=== PATIENT | male | born 1995 | race Caucasian/White ===

== ENCOUNTER 2018-10-23 22:26 | Emergency (ER) | payer SELFPAY ==
[~2018-10-23] VITALS: Ht 180.3 cm; Wt 80.7 kg
[2018-10-23] MEDS ORDERED: BACI30OI7 PO (22:37)
[2018-10-23] MEDS ORDERED: AMPH20TA2 PO (22:37)
[2018-10-23 23:09] VITALS: BP 113/68
[2018-10-23 23:12] LABS: BASOPHILS % (AUTO) 0 % (0-10); EOSINOPHILS # (AUTO) 0.1 10^3/uL (0.0-0.3); EOSINOPHILS % (AUTO) 1 % (0-10); HEMATOCRIT 40 % (40-54); HEMOGLOBIN 14.1 G/DL (13.3-17.7); LYMPHOCYTES # (AUTO) 2.1 X 10^3 (1.0-4.0); LYMPHOCYTES % (AUTO) 17 % (12-44); MEAN CORPUSCULAR HGB CONC 35 G/DL (32-36); MEAN CORPUSCULAR VOLUME 92 FL (80-99); MEAN PLATELET VOLUME 9.9 FL (7.4-10.4); MONOCYTES # (AUTO) 1.6 X 10^3 (0.0-1.0); MONOCYTES % (AUTO) 12 % (0-12); NEUTROPHILS # (AUTO) 9.1 X 10^3 (1.8-7.8); NEUTROPHILS % (AUTO) 70 % (42-75); PLATELET COUNT 350 10^3/uL (130-400); RED CELL DISTRIBUTION WIDTH 12.1 % (10.0-14.5); WHITE BLOOD COUNT 12.9 10^3/uL (4.3-11.0)
[2018-10-23 23:13] LABS: MEAN CORPUSCULAR HEMOGLOBIN 32 PG (25-34)
[2018-10-23] MEDS ORDERED: cefTRIAXone FOR IV USE 1,000 MG in WATER (STERILE) FOR INJECTION 10 ML IV ONE (23:15)
[2018-10-23] MEDS ORDERED: fentaNYL INJECTION 100 MCG/2 ML AMP IVP ONE (23:15)
[2018-10-23] MEDS ORDERED: NS 100 ML (IVPB) BAG IV ONE (23:15)
[2018-10-23] MEDS ORDERED: CLINDAMYCIN 900 MG/50 ML IVPB 50 ML IV ONE (23:15)
[2018-10-23] MEDS ORDERED: IOHEXOL 350 MG/ML 100 ML (OMNIPAQUE 350) VIAL IV ONE (23:15)
[2018-10-23 23:16] LABS: BILIRUBIN,URINE NEGATIVE (NEGATIVE); CLARITY,URINE CLEAR; COLOR,URINE YELLOW; GLUCOSE, URINE (UA) NEGATIVE (NEGATIVE); KETONES,URINE NEGATIVE (NEGATIVE); LEUKOCYTE ESTERASE ,URINE NEGATIVE (NEGATIVE); NITRITE,URINE NEGATIVE (NEGATIVE); PH,URINE 7 (5-9); PROTEIN,URINE NEGATIVE (NEGATIVE); UROBILINOGEN,URINE NORMAL (NORMAL)
--- NOTE | 2018-10-23 23:20 | ED EENT ---
History of Present Illness General Chief Complaint: Dental Problems/Pain Stated Complaint: TOOTH INFECTION;FACIAL SWELLING Nursing Triage Note: right facial swelling, dental extraction 10/18/18. failed i/d today. Source: patient Exam Limitations: no limitations History of Present Illness Date Seen by Provider: Oct 23, 2018 Time Seen by Provider: 22:50 Initial Comments This 22-year-old young man presents to the emergency room with severe facial swelling, pain, and fever after having a dental extraction performed on October 18. He presented back to Dr. Barton's office today for follow-up care. An I&D was attempted but patient reports an abscess pocket could not be identified. Patient states the swelling has become more severe and pain and fever has worsened since the I&D attempt. He has been on amoxicillin and azithromycin and steroids without improvement. He can no longer open his mouth more than about 5 mm. He reports a weight loss of about 15 pounds over the last week due to inability to eat solid food. Allergies and Home Medications Allergies Coded Allergies: No Known Drug Allergies (Unverified , 10/23/18) Patient Home Medication List Home Medication List Reviewed: Yes Review of Systems Review of Systems Constitutional: see HPI Eyes: No Symptoms Reported Ears: No Symptoms Reported Nose: no symptoms reported Mouth: see HPI Throat: no symptoms reported Respiratory: no symptoms reported Cardiovascular: no symptoms reported Gastrointestinal: no symptoms reported Musculoskeletal: no symptoms reported Skin: no symptoms reported Neurological: No Symptoms Reported Hematologic/Lymphatic: No Symptoms Reported Past Xzybchq-Drsfcx-Prvjrb Hx Past Med/Social Hx: Reviewed Nursing Past Med/Soc Hx Patient Social History Alcohol Use: Occasionally Uses Recreational Drug Use: No Smoking Status: Current Someday Smoker Type Used: Cigarettes 2nd Hand Smoke Exposure: Yes Recent Foreign Travel: No Contact w/Someone Who Travel: No Recent Infectious Disease Expo: No Recent Hopitalizations: No Immunizations Up To Date Tetanus Booster (TDap): Less than 5yrs Seasonal Allergies Seasonal Allergies: No Past Medical History Surgeries: Yes (ear tubes) Tonsillectomy Respiratory: No Cardiac: No Neurological: No Genitourinary: No Gastrointestinal: No Musculoskeletal: No Endocrine: No HEENT: No Cancer: No Psychosocial: Yes ADD/ADHD Integumentary: No Blood Disorders: No Family Medical History No Pertinent Family Hx (noncontributory) Physical Exam Vital Signs Vital Signs - First Documented 10/23/18 22:30 Temp 100.7 Pulse 78 Resp 16 B/P (MAP) 145/75 (98) Pulse Ox 100 O2 Delivery Room Air Height, Weight, BMI Height: 5'11.00" Weight: 178lbs. oz. [id number]; BMI Method:Stated General Appearance: WD/WN, no apparent distress Eyes: bilateral eye normal inspection, bilateral eye PERRL, bilateral eye EOMI Ears: right ear TM normal; left ear TM red; bilateral ear auricle normal, bilateral ear canal normal Nose: normal inspection Mouth/Throat: other (Marked firm swelling of the right face. Stiff mandible can only actively be opened about 5 mm. 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, no motor/sensory deficits, alert, normal mood/affect, oriented x 3 Skin: normal color, warm/dry Progress/Results/Core Measures Results/Orders Lab Results Laboratory Tests Test 10/23/18 23:00 Range/Units White Blood Count 12.9 H 4.3-11.0 10^3/uL Red Blood Count 4.34 L 4.35-5.85 10^6/uL Hemoglobin 14.1 13.3-17.7 G/DL Hematocrit 40 40-54 % Mean Corpuscular Volume 92 80-99 FL Mean Corpuscular Hemoglobin 32 25-34 PG Mean Corpuscular Hemoglobin Concent 35 32-36 G/DL Red Cell Distribution Width 12.1 10.0-14.5 % Platelet Count 350 130-400 10^3/uL Mean Platelet Volume 9.9 7.4-10.4 FL Neutrophils (%) (Auto) 70 42-75 % Lymphocytes (%) (Auto) 17 12-44 % Monocytes (%) (Auto) 12 0-12 % Eosinophils (%) (Auto) 1 0-10 % Basophils (%) (Auto) 0 0-10 % Neutrophils # (Auto) 9.1 H 1.8-7.8 X 10^3 Lymphocytes # (Auto) 2.1 1.0-4.0 X 10^3 Monocytes # (Auto) 1.6 H 0.0-1.0 X 10^3 Eosinophils # (Auto) 0.1 0.0-0.3 10^3/uL Basophils # (Auto) 0.0 0.0-0.1 10^3/uL Prothrombin Time 14.2 12.2-14.7 SEC INR Comment 1.1 0.8-1.4 Activated Partial Thromboplast Time 40 H 24-35 SEC Urine Color YELLOW Urine Clarity CLEAR Urine pH 7 5-9 Urine Specific [place] 1.005 L 1.016-1.022 Urine Protein NEGATIVE NEGATIVE Urine Glucose (UA) NEGATIVE NEGATIVE Urine Ketones NEGATIVE NEGATIVE Urine Nitrite NEGATIVE NEGATIVE Urine Bilirubin NEGATIVE NEGATIVE Urine Urobilinogen NORMAL NORMAL MG/DL Urine Leukocyte Esterase NEGATIVE NEGATIVE Urine RBC (Auto) NEGATIVE NEGATIVE Urine RBC NONE /HPF Urine WBC NONE /HPF Urine Squamous Epithelial Cells RARE /HPF Urine Crystals NONE /LPF Urine Bacteria NEGATIVE /HPF Urine Casts NONE /LPF Urine Mucus NEGATIVE /LPF Urine Culture Indicated NO Sodium Level 139 135-145 MMOL/L Potassium Level 4.4 3.6-5.0 MMOL/L Chloride Level 100 98-107 MMOL/L Carbon Dioxide Level 29 21-32 MMOL/L Anion Gap 10 5-14 MMOL/L Blood Urea Nitrogen 5 L 7-18 MG/DL Creatinine 0.81 0.60-1.30 MG/DL Estimat Glomerular Filtration Rate > 60 BUN/Creatinine Ratio 6 Glucose Level 95 70-105 MG/DL Lactic Acid Level 0.94 0.50-2.00 MMOL/L Calcium Level 9.6 8.5-10.1 MG/DL Corrected Calcium 9.6 8.5-10.1 MG/DL Total Bilirubin 0.6 0.1-1.0 MG/DL Aspartate Amino Transf (AST/SGOT) 22 5-34 U/L Alanine Aminotransferase (ALT/SGPT) 23 0-55 U/L Alkaline Phosphatase 67 40-136 U/L C-Reactive Protein High Sensitivity 13.08 H 0.00-0.50 MG/DL Total Protein 7.2 6.4-8.2 GM/DL Albumin 4.0 3.2-4.5 GM/DL My Orders Orders - ROSE PULIDO MD Cbc With Automated Diff (10/23/18 22:51) Comprehensive Metabolic Panel (10/23/18 22:51) Blood Culture (10/23/18 22:51) Sputum Culture (10/23/18 22:51) Urinalysis (10/23/18 22:51) Urine Culture (10/23/18 22:51) Protime With Inr (10/23/18 22:51) Partial Thromboplastin Time (10/23/18 22:51) Chest 1 View, Ap/Pa Only (10/23/18 22:51) Saline Lock/Iv-Start (10/23/18 22:51) Vital Signs Adult Sepsis Patie Q15M (10/23/18 22:51) O2 (10/23/18 22:51) Remove Rings In Anticipation O (10/23/18 22:51) Lactic Acid Analyzer (10/23/18 22:51) Ct Neck (Soft Tissue) W (10/23/18 23:01) Clindamycin 900 Mg/50 Ml Ivpb (Cleocin P (10/23/18 23:15) Fentanyl Injection (Sublimaze Injection (10/23/18 23:15) Iohexol Injection (Omnipaque 350 Mg/Ml 1 (10/23/18 23:15) Contrast Received (Contrast Received) (10/23/18 23:15) Ns (Ivpb) (Sodium Chloride 0.9% Ivpb Bag (10/23/18 23:15) Ceftriaxone For Iv Use (Rocephin For I (10/23/18 23:15) Hs C Reactive Protein (10/23/18 23:20) Vancomycin Injection (Vancomycin Injecti (10/24/18 00:00) Ns Iv 1000 Ml (Sodium Chloride 0.9%) (10/23/18 23:49) Dexamethasone Injection (Decadron Inject (10/24/18 00:15) Vancomycin Injection 1gm (Omni (Vancomyc (10/24/18 00:01) Medications Given in ED Current Medications Medications Dose Ordered Sig/[place] Route Start Time Stop Time Status Last Admin Dose Admin Ceftriaxone Sodium 1000 mg/ Sterile Water 10 ml @ 200 mls/hr ONCE ONCE IV 10/23/18 23:15 10/23/18 23:17 DC 10/23/18 23:29 200 MLS/HR Dexamethasone Sodium Phosphate 10 mg ONCE ONCE IV 10/24/18 00:15 10/24/18 00:16 DC 10/24/18 00:13 10 MG Fentanyl Citrate 75 mcg ONCE ONCE IVP 10/23/18 23:15 10/23/18 23:17 DC 10/23/18 23:28 75 MCG Iohexol 75 ml ONCE ONCE IV 10/23/18 23:15 10/23/18 23:17 DC 10/24/18 00:01 75 ML Sodium Chloride 100 ml ONCE ONCE IV 10/23/18 23:15 10/23/18 23:17 DC 10/24/18 00:01 80 ML Sodium Chloride 1,000 ml @ 0 mls/hr Q0M ONCE IV 10/23/18 23:49 10/23/18 23:51 DC 10/24/18 00:13 0 MLS/HR Vancomycin HCl 250 ml @ ud STK-MED ONCE IV 10/24/18 00:01 10/24/18 00:05 DC 10/24/18 00:13 250 MLS/HR Vital Signs/I&O 10/23/18 10/23/18 10/23/18 10/23/18 22:30 23:09 23:09 23:30 Temp 100.7 Pulse 78 78 82 Resp 16 16 16 B/P (MAP) 145/75 (98) 113/68 (83) 118/68 (85) Pulse Ox 100 100 100 99 O2 Delivery Room Air Room Air Room Air Room Air 10/24/18 10/24/18 10/24/18 10/24/18 00:00 00:30 01:00 01:30 Temp 100.0 Pulse 79 78 81 98 Resp 16 18 16 16 B/P (MAP) 121/69 (86) 129/69 (89) 130/74 (92) 121/71 (88) Pulse Ox 100 99 99 98 O2 Delivery Room Air Room Air Room Air Room Air 10/24/18 00:00 Intake Total 10 ml Balance 10 ml Blood Pressure Mean: 83 Progress Progress Note #1: Time: 00:03 Progress Note Septic workup was pursued. Patient has leukocytosis and elevated CRP. CT reveals an abscess adjacent to the medial aspect of the mandible on the right. There is lymphadenopathy and soft tissue swelling as well. This is resulting in pharyngeal and tracheal deviation without obstruction. Patient has been given Rocephin and vancomycin is now being infused. He is receiving a liter of IV fluid. Fentanyl was used for pain management. Case was discussed with Dr. Yeager, ENT on-call. He advises discussion with an oral surgeon and transfer if necessary. He believes this abscess should be cleaned out by an oral surgeon. I did leave a message with Dr. Torres but have not received a message back yet. I do not hear back from Dr. Torres at a time CT report is transmitted, I will seek transfer to an outside facility with on-call oral surgery. Progress Note #2: Time: 01:45 Progress Note [facility] transfer center was contacted at 00:30. I discussed the case with Dr. Hughes, [facility] surgeon. He is happy to take care of the abscesses but would like the patient routed through the emergency room so the ENT can be involved and immediately accessible in case tracheostomy as needed. I discussed the case with Dr. Dougherty in the ER who accepted transfer. While awaiting EMS availability, patient decided he did not want to incur the cost of EMS services and requested to leave AGAINST MEDICAL ADVICE. I explained to the patient that he had an abscess causing tracheal deviation could affect his breathing and could possibly become fatal. I expressed my concern for adverse outcomes if he were to leave by private vehicle. Patient expressed understanding that traveling by private vehicle may result in harm or . He elected to sign out AGAINST MEDICAL ADVICE anyway. His IV was discontinued prior to departure. EMS and [facility] were notified of patient's decision. Diagnostic Imaging Diagonstic Imaging: Xray Plain Films/CT/US/NM/MRI: chest Comments Chest x-ray viewed by me. Report not yet available. Basilar atelectasis with no other acute abnormalities appreciated. Departure Impression Primary Impression: Sepsis Qualified Codes: A41.9 - Sepsis, unspecified organism Additional Impressions: Oral abscess Tracheal deviation Disposition: 07 AGAINST MEDICAL ADVICE Condition: Improved Transfer Time Spoke to Accepting Phy: 00:45 Transfer Progress Notes Patient accepted by Dr. Dougherty in the ER and Dr. Hughes ([facility] surgeon). Patient declined EMS transfer and elected to have his mother drive him to [facility] despite explanation of risks including harm or . Transfer Facility: [facility] Departure-Patient Inst. Referrals: NO,LOCAL PHYSICIAN (PCP/Family) Primary Care Physician ROSE PULIDO MD Oct 23, 2018 23:20
[2018-10-23 23:21] LABS: BACTERIA,URINE NEGATIVE /HPF; SQUAMOUS EPITHELIAL CELL,UR RARE /HPF
[2018-10-23 23:30] VITALS: BP 118/68
[2018-10-23] MEDS: RECEIVED CONTRAST (Hold Metformin) IV SCH (23:32)
[2018-10-23 23:33] LABS: ALANINE AMINOTRANSFERASE 23 U/L (0-55); ALKALINE PHOSPHATASE 67 U/L (40-136); BILIRUBIN,TOTAL 0.6 MG/DL (0.1-1.0); BUN/CREATININE RATIO 6; CALCIUM 9.6 MG/DL (8.5-10.1); CARBON DIOXIDE 29 MMOL/L (21-32); CHLORIDE 100 MMOL/L (98-107); CREATININE SERUM 0.81 MG/DL (0.60-1.30); GFR ESTIMATED > 60; GLUCOSE 95 MG/DL (70-105); POTASSIUM 4.4 MMOL/L (3.6-5.0); SODIUM 139 MMOL/L (135-145); TOTAL PROTEIN 7.2 GM/DL (6.4-8.2)
[2018-10-23 23:42] LABS: INR 1.1 (0.8-1.4); PROTHROMBIN TIME PATIENT 14.2 SEC (12.2-14.7)
[2018-10-23] MEDS ORDERED: NS IV 1000 ML 1,000 ML IV ONE (23:49)
[2018-10-24] VITALS: BP 121/69
[2018-10-24] MEDS ORDERED: VANCOMYCIN INJECTION 1,000 MG in NS (IVPB) 250 ML IV SCH ×2
[2018-10-24] MEDS ORDERED: VANCOMYCIN INJECTION 1GM (OMNI 250 ML IV ONE (00:01)
[2018-10-24] MEDS: RECEIVED CONTRAST (Hold Metformin) IV SCH (00:02)
[2018-10-24] MEDS ORDERED: DEXAMETHASONE 10 MG/ML (DECADRON) 1 ML VIAL IV ONE (00:15)
[2018-10-24 00:30] VITALS: BP 129/69
[2018-10-24 01:00] VITALS: BP 130/74
[2018-10-24 01:30] VITALS: BP 121/71
--- NOTE | 2018-10-24 01:35 | NUR ---
[facility] requesting to sign out ama to avoid incurring ambulance charges. erp. notified, in speaking with patient.
[2018-10-24 02:04] VITALS: BP 120/71
--- NOTE | 2018-10-24 06:11 | Diagnostic Imaging Report ---
PROCEDURE: CT neck soft tissue with contrast. TECHNIQUE: Multiple contiguous axial images were obtained through the neck after the administration of contrast. INDICATION: Facial swelling. Dental extraction 10/18/2018. COMPARISON: None. FINDINGS: The right second mandibular molar has been extracted. There is marked inflammatory change and edema throughout the appraisal specialist space including myositis of the muscles of mastication. There is a fluid collection along the lingual surface of the right mandible measuring 1.5 x 1.8 cm. There is also a fluid collection along the lateral surface of the right mandible measuring 0.9 x 0.6 cm. There are small locules of gas in the overlying subcutaneous tissues which are also edematous. There are small locules of gas within the appraisal specialist space. There is some mass effect upon the oropharynx which is patent. Enlarged right level IB and II lymph nodes. A right level IB lymph node measures up to 1.2 cm in short axis dimension. No necrotic lymph nodes. No pharyngeal or laryngeal mass. The tongue base and epiglottis are negative. No retropharyngeal fluid collections. No acute osseous findings in the cervical spine. The cervical carotid and vertebral arteries are grossly patent on this non-CTA exam. Mild mucosal thickening in the floor of the right maxillary sinus. The skull base is intact. The mastoids are clear. IMPRESSION: 1. There is extraction of the right second mandibular molar. 2. Small abscesses along the lingual and lateral right mandible. There is also marked inflammatory change throughout the appraisal specialist space including small locules of gas suspicious for gas-forming infection. 3. Cervical lymphadenopathy is greatest on the right Dictated by: Dictated on workstation # [id number]
--- NOTE | 2018-10-24 07:24 | Diagnostic Imaging Report ---
EXAM: CHEST 1 VIEW, AP/PA ONLY INDICATION: Facial swelling. COMPARISON: None. FINDINGS: Normal heart size and pulmonary vascularity. No dense consolidation, pleural effusion or pneumothorax. No acute osseous findings. IMPRESSION: Negative chest. Dictated by: Dictated on workstation # [id number]
== END 2018-10-24 02:00 | disposition left against medical advice (07) ==
LOC: EDUNIT# 22:26 → ER 22:28
DX: A41.9 Sepsis, unspecified organism (principal); K12.2 Cellulitis and abscess of mouth; J39.8 Other specified diseases of upper respiratory tract; F98.8 Other specified behavioral and emotional disorders with onset usually occurring in childhood and adolescence; F90.9 Attention-deficit hyperactivity disorder, unspecified type; F17.210 Nicotine dependence, cigarettes, uncomplicated; Z90.89 Acquired absence of other organs
CPT/HCPCS: 36415; 70491; 71045; 80053; 81000; 83605; 85025; 85610; 85730; 86141; 87040; 87088